=== PATIENT | female | born 2000 | race Caucasian/White ===

== ENCOUNTER 2022-09-26 04:35 | Day surgery (SDC) | payer OTHER ==
[2022-09-25 08:27] VITALS: BMI 26.3
[2022-09-26 12:33] VITALS: TEMP 98
[2022-09-26 14:34] VITALS: BP 121/71; PULSE 72; RESP 17
== END 2022-09-26 13:20 | disposition home or self-care (01) ==
LOC: JASU-ENDO 04:35
PROVIDERS: ATTEND Internal Medicine Gastroenterology
PROC: 0DB78ZX Excision of Stomach, Pylorus, Via Natural or Artificial Opening Endoscopic, Diagnostic (ICD-10-PCS; 2022-09-26)
PROC: 0DB68ZX Excision of Stomach, Via Natural or Artificial Opening Endoscopic, Diagnostic (ICD-10-PCS; principal; 2022-09-26 12:00)
DX: K29.50 Unspecified chronic gastritis without bleeding (principal)
CPT/HCPCS: 81025; 88305-TC; 88342-TC

== ENCOUNTER 2022-12-19 04:50 | Day surgery (SDC) | payer OTHER ==
[2022-12-14 16:25] VITALS: BMI 26.3
[2022-12-19 13:38] VITALS: TEMP 97.8
[2022-12-19 13:59] VITALS: BP 100/47; RESP 17
[2022-12-19 14:39] VITALS: PULSE 81
== END 2022-12-19 14:39 | disposition home or self-care (01) ==
LOC: JASU-ENDO 04:50
PROVIDERS: ATTEND Internal Medicine Gastroenterology
PROC: 0DJD8ZZ Inspection of Lower Intestinal Tract, Via Natural or Artificial Opening Endoscopic (ICD-10-PCS; principal; 2022-12-19 13:30)
DX: R10.84 Generalized abdominal pain (principal); K64.8 Other hemorrhoids
CPT/HCPCS: 81025